=== PATIENT | male | born 1970 | race Two or more races ===

== ENCOUNTER 2016-09-13 13:49 | Emergency (ER) | payer MEDICAID ==
[~2016-09-13] VITALS: Ht 175.3 cm; Wt 84.8 kg
[2016-09-14 04:25] VITALS: BP 159/104
== END 2016-09-14 05:29 | disposition home or self-care (01) ==
LOC: ER 13:57
DX: S80.212A Abrasion, left knee, initial encounter (principal); G89.4 Chronic pain syndrome; F43.10 Post-traumatic stress disorder, unspecified; F41.9 Anxiety disorder, unspecified; F17.210 Nicotine dependence, cigarettes, uncomplicated; F12.10 Cannabis abuse, uncomplicated; Z59.0 Homelessness; Z88.8 Allergy status to other drugs, medicaments and biological substances; X58.XXXA Exposure to other specified factors, initial encounter; Y93.89 Activity, other specified; Y99.8 Other external cause status; Y92.89 Other specified places as the place of occurrence of the external cause